=== PATIENT | female | born 1980 | race American Indian/Alaskan Native ===

== ENCOUNTER 2018-06-14 18:36 | Emergency (ER) | payer OTHER, MEDICAID ==
[2018-06-14] MEDS ORDERED: IBUPROFEN PO ONE (18:42)
--- NOTE | 2018-06-14 18:42 | Emergency Department Report ---
Chief Complaint: Abdominal Pain Stated Complaint: ABD PAIN Time Seen by Provider: 06/14/18 18:39 - HPI History of Present Illness: started period and has abd pain cramps never this bad psh csec l tube removed pmh neuro disorder tylenol has not helped pain mse completed - Exam Vital Signs: Vital Signs 06/14/18 18:38 Temperature 98.1 F Pulse Rate 90 Respiratory 20 Rate Blood Pressure 117/74 [Right] O2 Sat by Pulse 100 Oximetry MSE screening note: Focused history and physical exam performed. Due to findings the following was ordered: ED Disposition for MSE Condition: Stable Instructions: Abdominal Pain (ED)
[2018-06-14] MEDS ORDERED: TORADOL IM ONE (18:44)
[2018-06-14 20:53] LABS: Bilirubin,Urine NEG (Negative); Blood,Urine MOD (Negative); Color,Urine Yellow (Yellow); Mucus,Urine FEW /HPF; Protein,Urine <15 mg/dL mg/dL (Negative)
[2018-06-14 20:54] LABS: HCG Qualitative,Urine Negative (Negative)
[2018-06-14] MEDS ORDERED: NACL 0.9% 1000 ML 1,000 ML IV ONE (20:55)
[2018-06-14] MEDS ORDERED: ZOFRAN IV ONE (20:55)
[2018-06-14] MEDS ORDERED: MORPHINE IV ONE (20:55)
--- NOTE | 2018-06-14 21:09 | Emergency Department Report ---
ED Abdominal Pain HPI - General Chief Complaint: Abdominal Pain Stated Complaint: ABD PAIN Time Seen by Provider: 06/14/18 18:39 Source: patient Mode of arrival: Ambulatory Limitations: No Limitations - History of Present Illness Initial Comments: 37-year-old -[place] female presents to the emergency room for severe lower abdominal pain 1 day. Patient admits to nausea no vomiting no diarrhea last mist. Started 06/13/2018. Patient states that right side lower abdominal pain laying on the right side makes it a little better later in the left thigh makes pain worse patient reports that it feels like something is being pulled or stretched. Patient reports a past medical history of left tubal removal from right tubal . She has no known drug allergies she reports that the pain is intermittent sharp currently takes no medications on a daily basis. MD Complaint: abdominal pain -: days(s) (1) Location: RLQ Radiation: none Migration to: no migration Severity scale (0 -10): 10 Quality: sharp Consistency: constant Worsens With: movement Associated Symptoms: nausea - Related Data LMP Date: 06/13/18 Previous Rx's Medication Instructions Recorded Last Taken Type LORazepam [Ativan] 1 mg PO TID PRN #14 tablet 11/07/15 Unknown Rx Ibuprofen [Motrin 600 MG tab] 600 mg PO Q8H PRN #21 tablet 06/14/18 Unknown Rx Ondansetron [Zofran Odt] 4 mg PO Q8HR #12 tab.rapdis 06/14/18 Unknown Rx Oxycodone HCl/Acetaminophen 1 each PO Q6HR PRN #12 tablet 06/14/18 Unknown Rx [Percocet 7.5/325 mg] Allergies Allergy/AdvReac Type Severity Reaction Status Date / Time latex AdvReac Rash Verified 11/07/15 10:16 ED Review of Systems ROS: Stated complaint: ABD PAIN Other details as noted in HPI Comment: All other systems reviewed and negative Gastrointestinal: abdominal pain, nausea ED Past Medical Hx - Past Medical History Previous Medical History?: Yes Additional medical history: ectopic . functional neurological disorder - Surgical History Past Surgical History?: Yes Additional Surgical History: - Social History Smoking Status: Never Smoker Substance Use Type: None - Medications Home Medications: Home Medications Medication Instructions Recorded Confirmed Last Taken Type LORazepam [Ativan] 1 mg PO TID PRN #14 tablet 11/07/15 Unknown Rx Ibuprofen [Motrin 600 MG tab] 600 mg PO Q8H PRN #21 tablet 06/14/18 Unknown Rx Ondansetron [Zofran Odt] 4 mg PO Q8HR #12 tab.rapdis 06/14/18 Unknown Rx Oxycodone HCl/Acetaminophen 1 each PO Q6HR PRN #12 tablet 06/14/18 Unknown Rx [Percocet 7.5/325 mg] ED Physical Exam - General Limitations: No Limitations General appearance: alert, in no apparent distress - Head Head exam: Present: atraumatic, normocephalic - Eye Eye exam: Present: PERRL - ENT ENT exam: Present: mucous membranes moist - Neck Neck exam: Present: normal inspection - Respiratory Respiratory exam: Present: normal lung sounds bilaterally. Absent: respiratory distress - Cardiovascular Cardiovascular Exam: Present: regular rate, normal rhythm. Absent: systolic murmur, diastolic murmur, rubs, gallop - GI/Abdominal GI/Abdominal exam: Present: soft, tenderness (right lower quadrant). Absent: distended - Extremities Exam Extremities exam: Present: normal inspection - Back Exam Back exam: Present: normal inspection - Neurological Exam Neurological exam: Present: alert, oriented X3 - Psychiatric Psychiatric exam: Present: normal affect, normal mood - Skin Skin exam: Present: warm, dry, intact, normal color. Absent: rash ED Course Vital Signs 06/14/18 06/14/18 18:38 21:08 Temperature 98.1 F Pulse Rate 90 Respiratory 20 18 Rate Blood Pressure 117/74 [Right] O2 Sat by Pulse 100 Oximetry ED Medical Decision Making - Lab Data Result diagrams: 06/14/18 21:05 06/14/18 21:05 - Radiology Data Radiology results: report reviewed Patient: GIOVANNI RIVERO MR#: [id number] : 1980 Acct:[id number] Age/Sex: 37 / F ADM Date: 06/14/18 Loc: ED Attending Dr: Ordering Physician: CATARINA TOBIN Date of Service: 06/14/18 Procedure(s): CT abdomen pelvis w con Accession Number(s): [id number] cc: CATARINA TOBIN PROCEDURE: CT ABDOMEN PELVIS W CON TECHNIQUE: Spiral CT imaging of the abdomen and pelvis was obtained during the administration of IV contrast. Oral contrast was not administered. HISTORY: rlq pain COMPARISONS: None FINDINGS: Lower Lung g[place]: No focal abnormalities seen. Upper Abdomen: Liver, the gallbladder, the adrenal glands, the pancreas and spleen are unremarkable. Kidneys, Ureters and Urinary bladder: No abnormalities are seen. Retroperitoneum: Abdominal aorta appears normal. Nonspecific subcentimeter lymph nodes are seen in the retroperitoneum. No pathologically enlarged lymph nodes are identified. Bowel: No focal bowel loop abnormalities are seen. Normal-appearing appendix in the right lower quadrant. Minimal nonspecific fluid seen in the cul-de-sac. No evidence for bowel obstruction or free intraperitoneal gas. Reproductive organs: There is abnormal appearance of the uterus. A cystic struct ure appears to be extending from the lower uterine segment through the cervical canal and cervix into the vagina. On the sagittal view this appears to measure approximately 7.4 x 3.1 x 3.0 cm. I cannot exclude ongoing spontaneous . It is possible this represents a large necrotizing polyp projecting through the endometrial canal. No abnormal adnexal masses are seen. Other: No acute bone abnormalities are identified. IMPRESSION: Abnormal cystic fluid collection seen extending from the lower uterine segment and through the cervix. Consider ongoing spontaneous versus large necrotizing polyp. BI DATA ARCHITECT consultation suggested. Critical value: I discussed these findings in detail with KATHRYN Hoffman by phone conversation on 06/14/2018 at 10:50 PM Eastern standard time. She informs me the attending physician will be notified immediately. This document is electronically signed by Kurt Rivera MD., June 14 2018 10:56:12 PM ET Transcribed By: DFN Dictated By: KURT RIVERA MD Electronically Authenticated By: KURT RIVERA MD Signed Date/Time: 06/14/188 DD/ 07 TD/TT: 06/14/182207 - Medical Decision Making Patient has been evaluated by this provider in fast track. CBC CMP CT of abdomen and pelvis with contrast. CT came back abnormal concerning for either a considered ongoing spontaneous versus a large necrotizing polyp. Spoke to Dr. Jamarcus Miller [employer] provider he recommends patient be treated for pain and have her follow-up next week in his office to be evaluated. Patient verbalizes understanding Critical care attestation.: If time is entered above; I have spent that time in minutes in the direct care of this critically ill patient, excluding procedure time. ED Disposition Clinical Impression: Right lower quadrant abdominal pain Disposition: DC-01 TO HOME OR SELFCARE Is pt being admited?: No Does the pt Need Aspirin: No Condition: Stable Instructions: Abdominal Pain (ED) Additional Instructions: Take pain medication as needed. Increase her fluid intake. Take Zofran as needed for the nausea and is very important for you to follow-up with Dr. Marino guaman [employer] provider. Prescriptions: Ibuprofen [Motrin 600 MG tab] 600 mg PO Q8H PRN #21 tablet PRN Reason: Pain Oxycodone HCl/Acetaminophen [Percocet 7.5/325 mg] 1 each PO Q6HR PRN #12 tablet PRN Reason: Pain Ondansetron [Zofran Odt] 4 mg PO Q8HR #12 tab.rapdis Referrals: JONATHAN TOVAR MD [Staff Physician] - 3-5 Days JAMARCUS MILLER MD [Staff Physician] - 3-5 Days Forms: Work/School Release Form(ED), Accompanied Note
[2018-06-14 21:17] LABS: Basophils % (Auto) 0.2 % (0.0-1.8); Eosinophils % (Auto) 0.4 % (0.0-4.3); Hematocrit 34.3 % (30.3-42.9); Hemoglobin 11.1 gm/dl (10.1-14.3); Lymphocytes # (Auto) 0.6 K/mm3 (1.2-5.4); Lymphocytes % (Auto) 10.6 % (13.4-35.0); Mean Corpuscular HGB Conc 32 % (30-34); Mean Corpuscular Volume 91 fl (79-97); Monocytes # (Auto) 0.3 K/mm3 (0.0-0.8); Monocytes % (Auto) 5.7 % (0.0-7.3); Platelet Count 234 K/mm3 (140-440); Red Blood Count 3.79 M/mm3 (3.65-5.03); Red Cell Distribution Width 15.9 % (13.2-15.2)
[2018-06-14 21:33] LABS: Alanine Aminotransferase 9 units/L (7-56); Albumin 3.9 g/dL (3.9-5); BUN/Creatinine Ratio 17; Blood Urea Nitrogen 10 mg/dL (7-17); Calcium 8.5 mg/dL (8.4-10.2); Hemolysis Index 3
--- NOTE | 2018-06-14 22:58 | Cat Scan Report ---
PROCEDURE: CT ABDOMEN PELVIS W CON TECHNIQUE: Spiral CT imaging of the abdomen and pelvis was obtained during the administration of IV contrast. Oral contrast was not administered. HISTORY: rlq pain COMPARISONS: None FINDINGS: Lower Lung g[place]: No focal abnormalities seen. Upper Abdomen: Liver, the gallbladder, the adrenal glands, the pancreas and spleen are unremarkable. Kidneys, Ureters and Urinary bladder: No abnormalities are seen. Retroperitoneum: Abdominal aorta appears normal. Nonspecific subcentimeter lymph nodes are seen in the retroperitoneum. No pathologically enlarged ly mph nodes are identified. Bowel: No focal bowel loop abnormalities are seen. Normal-appearing appendix in the right lower quad rant. Minimal nonspecific fluid seen in the cul-de-sac. No evidence for bowel obstruction or free int raperitoneal gas. Reproductive organs: There is abnormal appearance of the uterus. A cystic structure appears to be ex tending from the lower uterine segment through the cervical canal and cervix into the vagina. On the sagittal view this appears to measure approximately 7.4 x 3.1 x 3.0 cm. I cannot exclude ongoi ng spontaneous . It is possible this represents a large necrotizing polyp projecting through the endometrial canal. No abnormal adnexal masses are seen. Other: No acute bone abnormalities are identified. IMPRESSION: Abnormal cystic fluid collection seen extending from the lower uterine segment and through the cervix . Consider ongoing spontaneous versus large necrotizing polyp. PARADI OPERATOR consultation suggested. Critical value: I discussed these findings in detail with KATHRYN Hoffman by phone conversation on at 10:50 PM Eastern standard time. She informs me the attending physician will be notified im mediately. This document is electronically signed by Kurt Hammonds MD., June 14 2018 10:56:12 PM ET
[2018-06-14 23:43] VITALS: BP 124/82
== END 2018-06-14 23:44 | disposition home or self-care (01) ==
LOC: ED 18:36
DX: R10.31 Right lower quadrant pain (principal); R11.0 Nausea; Z91.040 Latex allergy status
CPT/HCPCS: 36415; 74177; 80053; 81001; 81025; 85025; 96374; 96375; 99284; J2270; J2405; J7030; Q9967